=== PATIENT | female | born 1965 | race Caucasian/White ===

== ENCOUNTER 2017-02-03 16:56 | Emergency (ER) | payer OTHER ==
--- NOTE | ~2017-02-03 | CT4 ---
[facility] A Service of [facility] RADIOLOGY TEXT RESULTS PATIENT: PRATIMA GRAY LOCATION: [facility] : 65 UNIT #: [id number] AGE: [address]: Danyel Fairchild MD SEX: F ORDER DR: [id number] [facility] [address] [place], [place] [address] [id number] E MR#: [id number] Acc #: [id number] NAME: PRATIMA GRAY : 1965 SEX: F STUDY DATE/TIME: 02/03/2017 20:06 UNIT: [facility] ROOM: STUDY DESCRIPTION: CT Abd and Pelv Wo Cont Attending Physician: Danyel Fairchild M.D. Ordering Physician: Nati Streeter M.D. Primary Care Physician: Juany Mccrary M.D. MEDICAL IMAGING REPORT This report is preliminary unless electronic signature is present EXAM CT abdomen and pelvis without contrast 02/03/2017 HISTORY Right flank pain and back pain. Dysuria today. No injury. TECHNIQUE CT abdomen and pelvis was performed without contrast. This CT exam was performed with one or more of the following radiation dose reduction techniques: automatic exposure control, adjustment of mA and/or kV according to patient size, and iterative reconstruction. FINDINGS CT ABDOMEN: Mild splenic enlargement measuring 14 cm in length. Cholecystectomy. Curvilinear chronic dystrophic calcification along the upper pole of the spleen is stable compared to 10/05/2015. The liver, pancreas, kidneys, and adrenal glands are normal. No renal calculi. No hydronephrosis. No perinephric stranding. No ascites or bowel dilatation. Normal appendix. CT PELVIS: Internal fixation left acetabulum extending to the left ischial tuberosity and lateral ilium, and left hip prosthesis. The uterus is unremarkable. Bilateral tubal ligation clips.. No bowel dilatation. No ascites. Lumbosacral fusion across L5-S1. IMPRESSION 1. No acute findings. 2. No urinary calculi or obstruction. 3. NO normal appendix. 4. Mild splenic enlargement measuring 14 cm in length. 5. Cholecystectomy. [facility] A Service of [facility] RADIOLOGY TEXT RESULTS PATIENT: [id number] [birth year] UNIT #: [id number] AGE: [address]: Danyel Fairchild MD SEX: F ORDER DR: Dictated by... Salvador Yao M.D. THIS IS AN ELECTRONICALLY VERIFIED REPORT Salvador Yao M.D. at 02/04/2017 12:38 PM ART/meghna TD: 02/04/2017 11:28 JOB #: [id number] MEDICAL IMAGING REPORT COPY
[~2017-02-03 16:56] MED LIST: 24HOUR ALLERGY10 MG PO; ACETAMINOPHEN PO; ALBUTEROL 0.5ML INH; ALBUTEROL MININEB NEB; ALBUTEROL1.25 MG/3 NEB; ALBUTEROL17 G1 IH; ALBUTEROL17 GM INH; ALDARA CREAM TOP; ALL DAY ALLERGY10 M3 PO; ALPRAZOLAM PO; ASPIRIN81 M2 PO; ASPIRINEC PO; ATARAX PO; ATENOLOL PO; ATENOLOL25 GM MC; ATENOLOL25 GM PO; AUGMENTIN PO; BACTRIM DS TABL1 TA1 PO; BACTRIM DS TABL1 TAB PO; BENADRYL PO; BENZONATATE PO; BUPROPION XL300 MG PO; CARDIZEM CD120 M1 PO; CARDIZEM CD180 M1 PO; CARTIA XT180 M1 PO; CERTAGEN PO; CIPRO PO; CLEOCIN PO; CLINDAMYCIN HC300 MG PO; COLACE PO; CONDYLOX3.5 GM TOP; CYMBALTA30 MG PO; DAKIN'S3840 ML TOP; DARVOCET-N 1001 TAB PO; DAZIDOX10 MG PO; DESYREL100 MG PO; DESYREL50 M1 PO; DIFLUCAN PO; DOXYCYCLINE HY100 M1 PO; ENTRESTO 24 MG1 EACH PO; ERTAPENEM IV; FENTANYL1 PATCH .7 TOP; FLAGYL PO; FLEXERIL PO; FLEXERIL10 MG PO; FLOMAX0.4 M1 DOB; FLOVENT7.9 GM INH; FORFIVO XL450 MG PO; FUROSEMIDE40 MG PO; GABAPENTIN400 M2 PO; GLUCOPHAGE500 MG PO; HUMULIN N100 U/ML SQ; HYDROCODON-ACE1 EAC5 PO; HYDROCODON-ACE1 EAC7 PO; INSULIN PEN1 DIS.NDL INJ; INVANZ IV; K-DUR20 ME2 PO; KEFLEX PO; KEFLEX500 M1 PO; KEFLEX500 MG PO; KLONOPIN PO; KLONOPIN1 MG PO; LANTUS100 U/ML SUBQ; LANTUS100 UNITS/ SUBQ; LEVAQUIN PO; LIPITOR40 MG PO; LOMOTIL TABLET1 TAB PO; LORTAB 10/500 T1 TAB PO; LORTAB 5/500 TA1 TA1 PO; LORTAB 7.5-5001 TAB PO; LOSARTAN POTASS25 MG PO; LOSARTAN POTASS50 MG PO; LYRICA50 MG PO; LYRICA75 MG PO; MELOXICAM15 MG PO; METFORMIN HCL500 M1 PO; METFORMIN HCL500 M2 PO; METOPROLOL SUC100 MG PO; METOPROLOL SUCC25 MG PO; METOPROLOL TAR25 MG PO; MONTELUKAST SOD10 MG PO; MULTI VITAMIN1 EACH PO; MULTIPLE VITAMI1 T12 PO; NEURONTIN; NEURONTIN PO; NEURONTIN300 MG PO; NORCO 5/325 TAB1 TAB PO; NORCO 7.5/325 T1 TAB PO; NORMAL SALINE TOP; NOVOLIN 70/30 V10 M1 SQ; NOVOLOG100 UNITS/ SQ; OCEAN45 ML; OMEPRAZOLE40 MG PO; OXYCODON HCL-AP1 TA2 PO; OXYCODONE HCL10 MG PO; OXYCODONE-APAP1 EAC5 PO; PAXIL PO; PERCOCET PO; PERCOCET10 PO; PHENERGAN PO; PHENERGAN25 MG PO; POTASSIUM CHLO20 ME1 PO; PREDNISONE PO; PREDNISONE10 MG/DOSE PO; PRELONE PO; PRILOSEC PO; PRINIVIL5 MG PO; PROMETHAZINE12.5 MG PO; QVAR7.3 G1 IH; REGLAN10 MG PO; RIFAMPIN300 MG PO; ROBAXIN PO; ROBITUSSIN A-C S5 ML PO; SEPTRA DS PO; SERTRALINE HCL25 M1 PO; SIMVASTATIN40 MG PO; SYMBICORT INH; TALWIN NX TABLE1 TAB PO; TENORMIN50 MG PO; TESSALON PERLE100 M1 PO; TRAZODONE; TRAZODONE HCL100 MG PO; TRAZODONE PO; TYLOX 5-500 CA1 EACH PO; VERAMYST10 GM NS; VICODIN; VICODIN 5/500 T1 TAB PO; VICODIN PO; WELLBUTRIN SR150 MG PO; XARELTO20 MG PO; ZANTAC PO; ZESTRIL5 MG PO; ZOLOFT50 MG PO; ZOLPIDEM TARTRAT5 MG PO; ZYRTEC10 M2 PO; ZYVOX IV; [UNRECOGNIZED DRUG - OTHER] IV
[2017-02-03 17:28] LABS: URINE SOURCE CLEAN CATCH
[2017-02-03 17:32] LABS: URINE APPEARANCE CLEAR; URINE BILIRUBIN NEG (NEG); URINE BLOOD TRACE (NEG); URINE COLOR YELLOW; URINE GLUCOSE >1000 MG/DL (NEG); URINE KETONE NEG (NEG); URINE LEUKOCYTE ESTERASE TRACE (NEG); URINE NITRATE NEG (NEG); URINE PROTEIN NEG (NEG); URINE SPECIFIC GRAVITY 1.025 (1.003-1.035); URINE UROBILINOGEN 0.2 MG/DL (NEG)
[2017-02-03 17:33] LABS: CULTURE INDICATED? YES; URINE BACTERIA AUWI 1+ (NEGATIVE); URINE SQUAMOUS EPITHELIAL CELL FEW /[HPF]
[2017-02-03 19:33] LABS: BASOPHIL# 0.1 X10e3 (0-0.3); BASOPHIL% 0.9 % (0-2.5); EOSINOPHIL# 0.1 X10e3 (0-0.7); EOSINOPHIL% 0.9 % (0.0-7.0); HEMATOCRIT 42.8 % (35.0-45.0); LYMPHOCYTE# 3.4 X10e3 (1.0-3.5); LYMPHOCYTE% 26.9 % (17.0-45.0); MEAN CORPUSCULAR HEMOGLOBIN 29.2 PG (28-34); MEAN CORPUSCULAR HGB CONC 32.8 g/dL (30-36); MONOCYTE# 0.4 X10e3 (0-1.0); MONOCYTE% 3.4 % (3.0-12.0); NEUTROPHIL# 8.4 X10e3 (1.5-7.1); NEUTROPHIL% 67.9 % (40-75); PLATELET COUNT 254 X10e3 (140-420); RED BLOOD COUNT 4.81 X10e (3.90-5.30); RED CELL DISTRIBUTION WIDTH 14.1 % (11.0-15.5); WHITE BLOOD COUNT 12.4 X10e3 (4.0-10.5)
[2017-02-03 19:41] LABS: DIFF IND NO
[2017-02-03 21:36] LABS: BLOOD UREA NITROGEN 7 mg/dL (9-23); CALCIUM SERUM 8.7 mg/dL (8.4-10.2); CARBON DIOXIDE 29 mmol/L (22-31); CHLORIDE 99 mmol/L (100-111); CREATININE SERUM 0.5 mg/dL (0.6-1.4); GLOM FILT RATE Estimated ABOVE60 mL/min (>60); GLUCOSE FASTING 118 mg/dL (70-110); POTASSIUM 3.9 mmol/L (3.5-5.1); SODIUM 137 mmol/L (135-145)
== END 2017-02-03 21:58 | disposition home or self-care (01) ==
LOC: CED 16:56
PROVIDERS: Emergency Medicine
DX: R10.9 Unspecified abdominal pain (principal); Z91.040 Latex allergy status; Z88.5 Allergy status to narcotic agent; Z88.1 Allergy status to other antibiotic agents; Z88.8 Allergy status to other drugs, medicaments and biological substances
CPT/HCPCS: 36415; 74176; 80048; 81003; 85025; 87086; 96372; 99284; J1170; J2550

== ENCOUNTER 2017-02-20 18:01 | Emergency (ER) | payer OTHER ==
--- NOTE | ~2017-02-20 | EKG ---
PATIENT: PRATIMA GRAY UNIT #: [id number] Ventricular Rate: 96 BPM Atrial Rate: 96 BPM P-R Interval: 188 ms QRS Duration: 82 ms Q-T Interval: 392 ms QTC Calculation(Bezet): 495 ms P [place]: 55 degrees Calculated R [place]: -32 degrees Calculated T [place]: 46 degrees Diagnosis Line: Normal sinus rhythm Diagnosis Line: Left axis deviation Diagnosis Line: Low voltage QRS Diagnosis Line: Poor R wave progression questionable lead position Diagnosis Line: or body habitus Diagnosis Line: Abnormal ECG Diagnosis Line: When compared with ECG of 26-DEC-2016 08:11, Diagnosis Line: No significant change was found Diagnosis Line: Confirmed by JULIANNA BRITO MD ([id number]) on 02/20/2017 Diagnosis Line: 11:00:14 PM INTERPRETING MD: ALISHA DE SANTIAGO
--- NOTE | ~2017-02-20 | CR72 ---
[facility] A Service of [facility] RADIOLOGY TEXT RESULTS PATIENT: PRATIMA GRAY LOCATION: [facility] : 65 UNIT #: [id number] AGE: [address]: Flaquito Pearson MD SEX: F ORDER DR: [id number] [place] [id number] [facility] [place] [facility]. [place], [place] [address] [id number] E MR#: [id number] Acc #: [id number] NAME: PRATIMA GRAY : 1965 SEX: F STUDY DATE/TIME: 02/20/2017 17:22 UNIT: [facility] ROOM: STUDY DESCRIPTION: CR Chest Single View Portable Attending Physician: Flaquito Pearson M.D. Ordering Physician: Flaquito Pearson M.D. Primary Care Physician: Juany Mccrary M.D. MEDICAL IMAGING REPORT This report is preliminary unless electronic signature is present EXAM Portable chest. DATE OF EXAM 02/20/2017 HISTORY Chest pain for 2 days. FINDINGS The cardiac size is near the upper limits of normal. Normal pulmonary vascularity. Underpenetration of left base which is therefore incompletely evaluated. Mild linear atelectasis or scarring in the medial right base is similar to 12/25/2016. IMPRESSION 1. No evidence of active disease. 2. Limited evaluation of the left base due to underpenetration. No focal infiltrates in the remainder of the lungs. Dictated by... Salvador Yao M.D. THIS IS AN ELECTRONICALLY VERIFIED REPORT Salvador Yao M.D. at 02/20/2017 10:59 PM ART/anju TD: 02/20/2017 21:53 JOB #: [id number] MEDICAL IMAGING REPORT [facility] A Service of [facility] RADIOLOGY TEXT RESULTS PATIENT: PRATIMA GRAY LOCATION: [facility] : 65 UNIT #: [id number] AGE: [address]: Flaquito Pearson MD SEX: F ORDER DR: Page 1 of 1 COPY
[2017-02-20 18:02] LABS: BASOPHIL# 0.1 X10e3 (0-0.3); BASOPHIL% 0.7 % (0-2.5); EOSINOPHIL# 0.2 X10e3 (0-0.7); EOSINOPHIL% 1.1 % (0.0-7.0); HEMATOCRIT 42.4 % (35.0-45.0); HEMOGLOBIN 13.6 gm/dL (12.0-16.0); LYMPHOCYTE# 3.5 X10e3 (1.0-3.5); LYMPHOCYTE% 24.3 % (17.0-45.0); MEAN CELL VOLUME 88.6 FL (83-96); MEAN CORPUSCULAR HEMOGLOBIN 28.4 PG (28-34); MEAN PLATELET VOLUME 8.1 FL (6.5-11.5); MONOCYTE# 0.6 X10e3 (0-1.0); MONOCYTE% 4.2 % (3.0-12.0); NEUTROPHIL# 10.1 X10e3 (1.5-7.1); NEUTROPHIL% 69.7 % (40-75); PLATELET COUNT 235 X10e3 (140-420); RED BLOOD COUNT 4.78 X10e (3.90-5.30); RED CELL DISTRIBUTION WIDTH 13.9 % (11.0-15.5); WHITE BLOOD COUNT 14.4 X10e3 (4.0-10.5)
[2017-02-20 18:04] LABS: DIFF IND NO
[2017-02-20 18:06] LABS: POC - CKMB <1.0 ng/mL (0.0-7.9); POC - TROPONIN <0.05 ng/mL (<=0.05)
[2017-02-20 18:11] LABS: PARTIAL THROMBOPLASTIN TIME 26.5 SECONDS (23.5-31.3); PROTHROMBIN TIME (PATIENT) 10.8 SECONDS (9.6-11.5)
[2017-02-20 18:26] LABS: ALBUMIN SERUM 3.8 g/dL (3.5-5.0); BILIRUBIN, DIRECT 0.1 mg/dL (0.0-0.2); BILIRUBIN,INDIRECT 0.4 mg/dL (0.0-0.9); BILIRUBIN,TOTAL 0.5 mg/dL (0.2-2.0); CALCIUM SERUM 8.6 mg/dL (8.4-10.2); CREATININE SERUM 0.6 mg/dL (0.6-1.4); GLOM FILT RATE Estimated 104.8 mL/min (>60); POTASSIUM 3.9 mmol/L (3.5-5.1); PROTEIN TOTAL SERUM 7.9 g/dL (6.0-8.3)
[2017-02-20 20:05] LABS: POC - CKMB <1.0 ng/mL (0.0-7.9); POC - TROPONIN <0.05 ng/mL (<=0.05)
== END 2017-02-20 21:25 | disposition home or self-care (01) ==
LOC: CED 18:01
PROVIDERS: Emergency Medicine
DX: R07.89 Other chest pain (principal); I47.1 Supraventricular tachycardia; Z88.5 Allergy status to narcotic agent; Z88.8 Allergy status to other drugs, medicaments and biological substances; Z91.040 Latex allergy status; Z79.82 Long term (current) use of aspirin; Z79.899 Other long term (current) drug therapy
CPT/HCPCS: 36415; 71010; 80048; 80076; 82553; 83880; 84484; 85025; 85610; 85730; 93005; 99284